=== PATIENT | female | born 1935 | race Caucasian/White ===

== ENCOUNTER 2016-09-25 11:18 | Inpatient (IN) | payer OTHER, MEDICARE ==
[~2016-09-25] VITALS: Ht 167.6 cm; Wt 53.8 kg
[2016-09-25] VITALS (11 sets, daily range): BP systolic 109–169; BP diastolic 52–74; PULSE 76–104; RESP 16–20; TEMP 96.8–98.5; O2SAT 93–98
[~2016-09-25 11:18] MED LIST: TAB-TAB PO
[2016-09-25] MEDS ORDERED: MULT-135 PO (11:49)
[2016-09-25] MEDS ORDERED: LEVA500T PO (11:49)
[2016-09-25] MEDS ORDERED: LATA0.002 EACH EYE (11:50)
--- NOTE | 2016-09-25 12:05 | PD ---
HPI Chief Complaint: Cold / Flu Symptoms Time Seen by Provider: 11:59 Travel History International Travel<30 days: No Contact w/Intl Traveler<30days: No Traveled to known affect area: No History of Present Illness HPI 81-year-old female with history of pneumonia, presents to the ER today because she has had 1 week history of cough, cold symptoms, yellow phlegm, shortness of breath, and fevers. She states that she had been seen by her primary care physician and was given Levaquin which she has taken for several days without significant improvement. She denies any vomiting, abdominal pains, or any other symptoms. She states that the coughing gets worse at night when she lays down. Modifying Factors: None Associated Signs & Symptoms: Coughing, shortness of breath, yellow phlegm, fevers Risk Factors: History of previous pneumonia, has been on antibiotics for several days PFSH Past Medical History Cancer: Yes (uterine cancer 15 yrs ago, skin cancer on face) Cardiovascular Problems: No Chemotherapy: No Diminished Hearing: Yes ([place]) Endocrine: No Genitourinary: No Immune Disorder: No Musculoskeletal: No Neurologic: No Psychiatric: No Reproductive: Yes (hx of pneumonia) Respiratory: No Radiation Therapy: No Tetanus Vaccination: < 5 Years Influenza Vaccination: No ?: Not Menopausal: Yes : 2 Para: 2 Miscarriage: 0 : 0 Past Surgical History Eye Surgery: Yes (for catarcts in both eyes, glaucoma) Gynecologic Surgery: Yes (hysterectomy) Hysterectomy: Yes Oral Surgery: Yes (tonsillectomy, teeth extractions) Tonsillectomy: Yes Social History Alcohol Use: No Tobacco Use: No (former smoker in her 20's cigs) Substance Use: No Allergies-Medications (Allergen,Severity, Reaction): Coded Allergies: No Known Allergies (Unverified , 09/25/16) Reported Meds & Prescriptions Reported Meds & Active Scripts Active Reported Latanoprost Opth Drops (Latanoprost) 0.005% Drops 1 Drop EACH EYE HS Refrigerate until opened. Levaquin (Levofloxacin) 500 Mg Tab 500 Mg PO DAILY Multi Vitamin (Multiple Vitamin) 1 Tab Tab 1 Tab PO DAILY Review of Systems Except as stated in HPI: all other systems reviewed are Neg Physical Exam Narrative GENERAL: Well-nourished, well-developed elderly white female patient who is coughing in the ER, in mild distress. Awake and oriented 3. SKIN: Warm and dry. HEAD: Normocephalic. EYES: No scleral icterus. No injection or drainage. NECK: Supple, trachea midline. CARDIOVASCULAR: Regular rate and rhythm without murmurs, gallops, or rubs. RESPIRATORY: Breath sounds equal and decreased at the bases bilaterally. No accessory muscle use. Right lower lung crackles. GASTROINTESTINAL: Abdomen soft, non-tender, nondistended. MUSCULOSKELETAL: No cyanosis. There is significant pitting edema at the left leg. BACK: Nontender without obvious deformity. No CVA tenderness. Data Data Last Documented VS Vital Signs Date Time Temp Pulse Resp B/P Pulse Ox O2 Delivery O2 Flow Rate FiO2 09/25/16 13:00 82 16 169/74 98 Nasal Cannula 2 09/25/16 12:06 98.5 Orders Influenzae A/B Antigen (09/25/16 11:42) Chest, Single Ap (09/25/16 11:42) Electrocardiogram (09/25/16 11:59) Complete Blood Count With Diff (09/25/16 11:59) Comprehensive Metabolic Panel (09/25/16 11:59) Lactic Acid Sepsis Protocol (09/25/16 11:59) Ckmb (Isoenzyme) Profile (09/25/16 11:59) Troponin I (09/25/16 11:59) Urinalysis - C+S If Indicated (09/25/16 11:59) Blood Culture (09/25/16 11:59) Blood Glucose (09/25/16 11:59) Ecg Monitoring (09/25/16 11:59) Iv Access Insert/Monitor (09/25/16 11:59) Oximetry (09/25/16 11:59) Oxygen Administration (09/25/16 11:59) B-Type Natriuretic Peptide (09/25/16 11:59) Ceftriaxone Inj (Rocephin Inj) (09/25/16 12:06) Azithromycin Inj (Zithromax Inj) (09/25/16 12:06) Urine Culture (09/25/16 12:40) Labs Laboratory Tests Test 09/25/16 09/25/16 12:10 12:40 White Blood Count 8.4 TH/MM3 Red Blood Count 4.03 MIL/MM3 Hemoglobin 11.6 GM/DL Hematocrit 36.0 % Mean Corpuscular Volume 89.3 FL Mean Corpuscular Hemoglobin 28.8 PG Mean Corpuscular Hemoglobin 32.3 % Concent Red Cell Distribution Width 13.1 % Platelet Count 229 TH/MM3 Mean Platelet Volume 8.0 FL Neutrophils (%) (Auto) 73.2 % Lymphocytes (%) (Auto) 8.2 % Monocytes (%) (Auto) 17.9 % Eosinophils (%) (Auto) 0.0 % Basophils (%) (Auto) 0.7 % Neutrophils # (Auto) 6.1 TH/MM3 Lymphocytes # (Auto) 0.7 TH/MM3 Monocytes # (Auto) 1.5 TH/MM3 Eosinophils # (Auto) 0.0 TH/MM3 Basophils # (Auto) 0.1 TH/MM3 CBC Comment DIFF FINAL Differential Comment Sodium Level 139 MEQ/L Potassium Level 3.9 MEQ/L Chloride Level 100 MEQ/L Carbon Dioxide Level 31.2 MEQ/L Anion Gap 8 MEQ/L Blood Urea Nitrogen 13 MG/DL Creatinine 0.54 MG/DL Estimat Glomerular Filtration 108 ML/MIN Rate Random Glucose 93 MG/DL Lactic Acid Level 1.2 mmol/L Calcium Level 8.1 MG/DL Total Bilirubin 0.5 MG/DL Aspartate Amino Transf 28 U/L (AST/SGOT) Alanine Aminotransferase 26 U/L (ALT/SGPT) Alkaline Phosphatase 72 U/L Total Creatine Kinase 64 U/L Troponin I LESS THAN 0.02 NG/ML B-Type Natriuretic Peptide 129 PG/ML Total Protein 6.5 GM/DL Albumin 2.7 GM/DL Urine Collection Type CATH Urine Color YELLOW Urine Turbidity CLEAR Urine pH 6.0 Urine Specific [place] 1.020 Urine Protein 30 mg/dL Urine Glucose (UA) NEG mg/dL Urine Ketones TRACE mg/dL Urine Occult Blood MOD Urine Nitrite NEG Urine Bilirubin NEG Urine Leukocyte Esterase TRACE Urine RBC 20-24 /hpf Urine WBC 15-19 /hpf Urine Squamous Epithelial 6-8 /hpf Cells Microscopic Urinalysis Comment CULTURE INDICATED Urine Collection Time 12:40 MDM Medical Decision Making Medical Screen Exam Complete: Yes Emergency Medical Condition: Yes Medical Record Reviewed: Yes Interpretation(s) EKG shows NSR, no ST elevation or depression, and no arrhythmias. No significant T-wave inversions. Last 24 hours Impressions Chest X-Ray 09/25/16 1142 Signed Impressions: Service Date/Time: Sunday, September 25, 2016 11:54 - CONCLUSION: Right basilar infiltrate and small effusion. Curt Ibarra MD Laboratory Tests Test 09/25/16 09/25/16 12:10 12:40 Neutrophils (%) (Auto) 73.2 % (16.0-70.0) Lymphocytes (%) (Auto) 8.2 % (9.0-44.0) Monocytes (%) (Auto) 17.9 % (0.0-8.0) Lymphocytes # (Auto) 0.7 TH/MM3 (1.0-4.8) Monocytes # (Auto) 1.5 TH/MM3 (0-0.9) Calcium Level 8.1 MG/DL (8.5-10.1) Troponin I LESS THAN 0.02 NG/ML (0.02-0.05) B-Type Natriuretic Peptide 129 PG/ML (0-100) Albumin 2.7 GM/DL (3.4-5.0) Urine Protein 30 mg/dL (NEG-TRACE) Urine Ketones TRACE mg/dL (NEG) Urine Occult Blood MOD (NEG) Urine Leukocyte Esterase TRACE (NEG) Urine RBC 20-24 /hpf (0-3) Urine WBC 15-19 /hpf (0-5) Urine Squamous Epithelial 6-8 /hpf (0-5) Cells Differential Diagnosis Coughing, shortness of breath, feverspneumonia versus bronchitis versus URI/ viral syndrome versus dehydration versus metabolic issues versus CHF Narrative Course Patient states that her left leg is always swollen since she had her hysterectomy many years ago, states that they had taken too many lymph nodes out. Apparently not a new issue. Chest x-ray shows a right lower lobe infiltrate concerning for pneumonia. She has a UTI. IV antibiotics were initiated after cultures are drawn. At this point, my plan would be to admit her for pneumonia and UTI, failed outpatient therapy. Case is discussed with Dr. Brown for admission. Diagnosis Primary Impression: Pneumonia Additional Impression: UTI (urinary tract infection) Admitting Information Admitting Physician Requests: Admit Alessandra Lujan MD Sep 25, 2016 12:05 Alessandra Lujan MD Sep 25, 2016 12:05
[2016-09-25] MEDS ORDERED: cefTRIAXone INJ 2,000 MG in SODIUM CHLORIDE 0.9% INJ 100 ML IV STA (12:06)
[2016-09-25] MEDS ORDERED: AZITHROMYCIN INJ 500 MG in SODIUM CHLOR 0.9% 250 ML INJ 250 ML IV STA (12:06)
--- NOTE | 2016-09-25 12:08 | RADHPO ---
EXAM DATE/TIME: 09/25/2016 11:54 [facility] COMPARISON: CHEST SINGLE AP, November 26, 2013, 16:36. INDICATIONS : Cough, fever, short of breath MEDICAL HISTORY : None. SURGICAL HISTORY : None. ENCOUNTER: Initial ACUITY: 2 weeks PAIN SCORE: 0/10 LOCATION: Bilateral chest FINDINGS: A single view of the chest demonstrates hyperaeration and right basal density. Left lung clear. Heart and the upper limits of normal in size. Osseous structures are intact. CONCLUSION: Right basilar infiltrate and small effusion. Curt Ibarra MD on September 25, 2016 at 12:05 Board Certified Radiologist. This report was verified electronically.
[2016-09-25 12:29] LABS: AUTOMATED NEUTROPHIL # 6.1 TH/MM3 (1.8-7.7); BASOPHIL # 0.1 TH/MM3 (0-0.2); BASOPHIL % 0.7 % (0.0-2.0); LYMPH % 8.2 % (9.0-44.0); LYMPHOCYTE # 0.7 TH/MM3 (1.0-4.8); MEAN CELL VOLUME 89.3 FL (80.0-100.0); MEAN CORPUSCULAR HEMOGLOBIN 28.8 PG (27.0-34.0); MEAN CORPUSCULAR HGB CONC 32.3 % (32.0-36.0); MONO % 17.9 % (0.0-8.0); NEUT % 73.2 % (16.0-70.0); PLATELET COUNT 229 TH/MM3 (150-450); RED BLOOD COUNT 4.03 MIL/MM3 (4.00-5.30); RED CELL DISTRIBUTION WIDTH 13.1 % (11.6-17.2); WHITE BLOOD COUNT 8.4 TH/MM3 (4.0-11.0)
[2016-09-25 12:34] LABS: HEMO FLAGS DIFF FINAL
[2016-09-25 12:37] LABS: CHLORIDE 100 MEQ/L (98-107); POTASSIUM 3.9 MEQ/L (3.5-5.1); SODIUM (NA) 139 MEQ/L (136-145)
[2016-09-25 12:41] LABS: ANION GAP 8 MEQ/L (5-15); BICARBONATE 31.2 MEQ/L (21.0-32.0); BLOOD UREA NITROGEN 13 MG/DL (7-18)
[2016-09-25 12:43] LABS: ALT (GPT) 26 U/L (10-53)
[2016-09-25 12:44] LABS: AST (GOT) 28 U/L (15-37); GLOMERULAR FILTRATION RATE 108 ML/MIN (>89)
[2016-09-25 12:45] LABS: TOTAL BILIRUBIN ADULT 0.5 MG/DL (0.2-1.0)
[2016-09-25 12:46] LABS: ALKALINE PHOSPHATASE 72 U/L (45-117)
[2016-09-25 12:53] LABS: CREATINE KINASE 64 U/L (26-192)
[2016-09-25 13:00] LABS: GLUCOSE,URINE NEG (NEG); KETONE, URINE TRACE mg/dL (NEG); NITRITE,URINE NEG (NEG)
[2016-09-25 13:01] LABS: BLOOD, URINE MOD (NEG)
[2016-09-25 13:06] LABS: METHOD OF COLLECTION CATH; URINE COLOR YELLOW (YELLW/STRAW); WBC, URINE 15-19 /hpf (0-5)
[2016-09-25 13:07] LABS: COMMENT (UR) CULTURE INDICATED; CULTURE IF INDICATED CULTURE INDICATED
--- NOTE | 2016-09-25 14:11 | HHI.HP ---
cc: Letitia Jones MD [facility] Letitia Jones MD Admission Diagnosis pneumonia/UTI Diagnoses: (1) Pneumonia Diagnosis: Principal (2) Pleural effusion Diagnosis: Principal (3) Failure of outpatient treatment Diagnosis: Principal (4) Possible urinary tract infection Diagnosis: Principal (5) Leg edema, left Diagnosis: Principal (6) HTN (hypertension) Diagnosis: Principal (7) Coccygeal pain Diagnosis: Principal Chief Complaint: cough, sob Travel History International Travel<30 Days: No Contact w/Intl Traveler <30 Da: No Traveled to Known Affected Are: No History of Present Illness 81-year-old female with history of uterine and skin cancer as well as a previous pneumonia is admitted for pneumonia. Patient states that a few weeks ago she was cold all the time. She states her cough came on gradually but it became worse 1 week ago. Cough is productive with yellow sputum. She states she couldn't lay down because she couldn't breathe. She states she cannot take a breath because it makes her cough. She admits to pleuritic pain once in a while but denies chest pain otherwise. She has had terrible headaches , no energy, and generalized weakness. She states the "gland" behind her left ear feels swollen and she has soreness in the left naris. The patient states she saw her primary care physician Dr. Jones on 09/21/16 and had a fever of 101.5 in the office. She was prescribed Levaquin 500 mg daily 10 days which she has been taking but states it has not helped. Patient states she was constipated a few days ago but drank prune juice which helped and her last bowel movement was this morning. She denies any abdominal pain, nausea, vomiting, or diarrhea. She admits to increased frequency of urination although little output each time , but denies any dysuria. She admits to low back pain which she attributes to sitting in the recliner the past few nights whereas she usually lies supine when sleeping. Denies recent fall. Patient lives alone at home independently but there is a gentleman who is in the detached apartment who helps take care of her dog; she states he was sick 1 month ago. Patient denies being hospitalized the last 3 months. Review of Systems Constitutional: COMPLAINS OF: Fatigue, Fever, Chills Eyes: DENIES: Blurred vision Respiratory: COMPLAINS OF: Cough, Sputum production, Shortness of breath Cardiovascular: COMPLAINS OF: Chest pain (pleuritic pain) Gastrointestinal: COMPLAINS OF: Constipation (now resolved), DENIES: Abdominal pain, Black stools, Bloody stools, Diarrhea, Nausea, Vomiting Genitourinary: COMPLAINS OF: Urinary frequency, DENIES: Dysuria Musculoskeletal: COMPLAINS OF: Back pain Integumentary: DENIES: Rash Hematologic/lymphatic: COMPLAINS OF: Lymphadenopathy (behind L ear) Neurologic: COMPLAINS OF: Headache +generalized weakness Past Family Social History Past Medical History Uterine cancer 15 years ago Skin cancer face Hospitalized for pneumonia in 2013 Past Surgical History Glaucoma and cataract surgery Hysterectomy Tonsillectomy, teeth extraction Reported Medications Latanoprost Opth Drops (Latanoprost) 0.005% Drops 1 Drop EACH EYE HS Refrigerate until opened. Multi Vitamin (Multiple Vitamin) 1 Tab Tab 1 Tab PO DAILY Allergies: Coded Allergies: No Known Allergies (Unverified , 09/25/16) Family History Mother at age 75 from heart issue. Father at age 92 from heart issue. Grandmother with stomach cancer. Social History Patient states she quit smoking at age of 21. Denies illicit drug use. Physical Exam Vital Signs Vital Signs Date Time Temp Pulse Resp B/P Pulse Ox O2 Delivery O2 Flow Rate FiO2 09/25/16 13:00 82 16 169/74 98 Nasal Cannula 2 09/25/16 12:35 80 16 150/60 98 Nasal Cannula 2 09/25/16 12:07 98 Nasal Cannula 2 09/25/16 12:07 18 98 Nasal Cannula 2 09/25/16 12:06 98.5 78 18 135/70 96 Room Air 09/25/16 11:40 87 16 94 Room Air 09/25/16 11:23 98.5 84 16 139/56 94 Physical Exam GENERAL: This is a pleasant elderly well-developed patient in no apparent distress. SKIN: Light erythema over the left distal tibia. HEAD: Atraumatic. Normocephalic. EYES: No scleral icterus. No injection or drainage. NECK: Trachea midline. CARDIOVASCULAR: Regular rate and rhythm without murmurs, gallops, or rubs. RESPIRATORY: Productive cough on exam. Patient coughs with each expiration. Rhonchi vs crackles present. No wheezing. GASTROINTESTINAL: Abdomen soft, non-tender, nondistended. No guarding. MUSCULOSKELETAL: Tender warm edema of the left lower leg. BACK: No CVA tenderness bilaterally. Tender over coccygeal region, but no swelling or ecchymosis evident. NEUROLOGICAL: Awake and alert. Normal speech. PSYCHIATRIC: Normal mood and affect. Laboratory Laboratory Tests Test 09/25/16 09/25/16 12:10 12:40 White Blood Count 8.4 Red Blood Count 4.03 Hemoglobin 11.6 Hematocrit 36.0 Mean Corpuscular Volume 89.3 Mean Corpuscular Hemoglobin 28.8 Mean Corpuscular Hemoglobin 32.3 Concent Red Cell Distribution Width 13.1 Platelet Count 229 Mean Platelet Volume 8.0 Neutrophils (%) (Auto) 73.2 Lymphocytes (%) (Auto) 8.2 Monocytes (%) (Auto) 17.9 Eosinophils (%) (Auto) 0.0 Basophils (%) (Auto) 0.7 Neutrophils # (Auto) 6.1 Lymphocytes # (Auto) 0.7 Monocytes # (Auto) 1.5 Eosinophils # (Auto) 0.0 Basophils # (Auto) 0.1 CBC Comment DIFF FINAL Differential Comment Sodium Level 139 Potassium Level 3.9 Chloride Level 100 Carbon Dioxide Level 31.2 Anion Gap 8 Blood Urea Nitrogen 13 Creatinine 0.54 Estimat Glomerular Filtration 108 Rate Random Glucose 93 Lactic Acid Level 1.2 Calcium Level 8.1 Total Bilirubin 0.5 Aspartate Amino Transf 28 (AST/SGOT) Alanine Aminotransferase 26 (ALT/SGPT) Alkaline Phosphatase 72 Total Creatine Kinase 64 Troponin I LESS THAN 0.02 B-Type Natriuretic Peptide 129 Total Protein 6.5 Albumin 2.7 Urine Collection Type CATH Urine Color YELLOW Urine Turbidity CLEAR Urine pH 6.0 Urine Specific [place] 1.020 Urine Protein 30 Urine Glucose (UA) NEG Urine Ketones TRACE Urine Occult Blood MOD Urine Nitrite NEG Urine Bilirubin NEG Urine Leukocyte Esterase TRACE Urine RBC 20-24 Urine WBC 15-19 Urine Squamous Epithelial 6-8 Cells Microscopic Urinalysis Comment CULTURE INDICATED Urine Collection Time 12:40 Date/Time Procedure Status Source Growth 09/25/16 12:40 Urine Culture Received Urine Catheterized Urine Pending 09/25/16 12:30 Aerobic Blood Culture Received Blood Peripheral Pending 09/25/16 12:30 Anaerobic Blood Culture Received Blood Peripheral Pending 09/25/16 11:50 Influenza Types A,B Antigen (MARTIN) - Final Complete Nasal Washing NEGATIVE FOR FLU A AND B ANTIGEN.... Result Diagram: 09/25/16 1210 09/25/16 1210 Imaging Last Impressions Chest X-Ray 09/25/16 1142 Signed Impressions: Service Date/Time: Sunday, September 25, 2016 11:54 - CONCLUSION: Right basilar infiltrate and small effusion. Curt Ibarra MD Assessment and Plan Assessment and Plan 81-year-old female with: Pneumonia/pleural effusion/failure of outpatient treatment: Patient presents with cough, SOB, and occasional pleuritic pain. Chest x-ray personally interpreted with an obvious infiltrate in the right lower lobe and small right pleural effusion. Failed outpatient Levaquin. White blood cell count is normal. Patient does not meet sepsis criteria. Negative influenza test. Oxygen saturation 94% on room air; 98% on 2 L of O2. -Continue azithromycin and ceftriaxone IV. -Solu-Medrol 40 mg every 12 hours -DuoNeb every 4 as needed for shortness of breath -Guaifenesin-dextromethorphan cough syrup prn -Tylenol prn fever -O2 prn -Blood cultures pending -PT eval for generalized weakness Possible UTI: UA personally interpreted. Although there is moderate occult blood and 15-19 white blood cells there is only trace leukocyte esterase, no nitrites, and 6-8 squamous epithelial cells which may indicate contamination. Patient does admit to some increased urinary frequency though. -Possible UTI will be covered with ceftriaxone being administered for pneumonia -Urine culture pending L leg edema: Significant swelling in the left lower leg present on exam. Patient states she has chronic edema in the left leg due to lymph node removal with her hysterectomy, but the leg is significantly sensitive to touch, which may be new, and it is warm and slightly erythematous. Right lower extremity is normal. -Doppler ultrasound left leg ordered to rule out DVT HTN: BP 169/74 at 1300 hrs. Likely attributed to acute illness. No history of hypertension. -Clonidine prn SBP >180 Coccygeal pain: No injury. Due to sitting in chair. -Tylenol, Eldena prn pain -PT GI prophylaxis: -Pepcid 20 mg po daily. -Colace 100 mg po bid -Magnesium hydroxide prn constipation DVT prevention: Lovenox sq. Avoid SCD use on L leg. Written by Cora Sosa PA-C acting as scribe for Dr. Brown on 09/25/16 at ~ 1400 hours. The documentation accurately reflects the work and decisions performed face-to- face by me Dr. Brown on 09/25/16 at ~1400. Discussed Condition With ED physician, patient Physician Certification 2 Midnight Certification Type: Admission for Inpatient Services Order for Inpatient Services The services are ordered in accordance with Medicare regulations or non- Medicare payer requirements, as applicable. In the case of services not specified as inpatient-only, they are appropriately provided as inpatient services in accordance with the 2-midnight benchmark. Estimated LOS (days): 2 days is the estimated time the patient will need to remain in the hospital, assuming treatment plan goals are met and no additional complications. Post-Hospital Plan: Not yet determined Medical Decision Making Impression and Plan The exam, history, and the medical decision-making described in the above note were completed with the assistance of the mid-level provider. I reviewed and agree with the findings presented. I attest that I had a [id number] encounter with the patient on the same day, and personally performed and documented my assessment and findings in the medical record. Agree with above Problem Qualifiers (1) Pneumonia: Cora Sosa Sep 25, 2016 14:11 Belle Brown MD Sep 25, 2016 16:06
[2016-09-25] MEDS: methylPREDNISolone SOD SUCC 40 MG/1 ML VIAL IV SCH (14:41)
[2016-09-25] MEDS: SODIUM CHLORIDE 0.9% FLUSH 5 ML FLUSH IV FLUSH PRN (14:41)
[2016-09-25] MEDS ORDERED: ONDANSETRON HCL 4 MG/2 ML VIAL IVP PRN (15:15)
[2016-09-25] MEDS ORDERED: MAGNESIUM HYDROXIDE SUSP 30 ML CUP PO PRN (15:15)
[2016-09-25] MEDS ORDERED: ACETAMINOPHEN/HYDROcodone 325 MG/5 MG TAB PO PRN (15:15)
[2016-09-25] MEDS: DOCUSATE SODIUM 100 MG CAP PO SCH (15:15)
[2016-09-25] MEDS ORDERED: ACETAMINOPHEN/HYDROcodone 325 MG/7.5 MG TAB PO PRN (15:15)
--- NOTE | 2016-09-25 15:48 | RADHPO ---
EXAM DATE/TIME: 09/25/2016 15:08 [facility] COMPARISON: No previous studies available for comparison. EXTERNAL COMPARISON : [facility], US LEG, B[facility], [facility], US LEG, BILATE RAL VENOUS DOPPLER, July. [facility], US LEG, LEFT VENOUS DOPPLER, July 17 09. INDICATIONS : Left leg swelling. MEDICAL HISTORY : Carcinoma, uterine and skin. SURGICAL HISTORY : Tonsillectomy. Hysterectomy. Cataract removal. Foot surgery. ENCOUNTER: Subsequent ACUITY: 1 day PAIN SCORE: 0/10 LOCATION: Left leg. TECHNIQUE: Venous ultrasound of the leg was performed from the inguinal ligament to the proximal calf. Real-shruthi e, color Doppler and spectral tracing, compression and augmentation techniques were used. FINDINGS: There is normal compressibility of the deep venous system from the inguinal region to the proximal ca lf. No echogenic clot is seen in the lumen of the common femoral, femoral, popliteal, and posterior tibial veins. There is a normal response of the venous system to proximal and distal augmentation an d respiration. CONCLUSION: Normal examination. Bernardo Magdaleno MD on September 25, 2016 at 15:46 Board Certified Radiologist. This report was verified electronically.
[2016-09-25] MEDS: ENOXAPARIN SODIUM 40 MG/0.4 ML SYRINGE SQ SCH (17:30)
[2016-09-25] MEDS ORDERED: FAMOTIDINE 20 MG TAB PO SCH (21:00)
[2016-09-25] MEDS: LATANOPROST 0.005% OPHT SOLN 2.5 ML BTL EACH EYE SCH (21:46)
[2016-09-25] MEDS: SODIUM CHLORIDE 0.9% FLUSH 5 ML FLUSH IV FLUSH SCH (21:47)
[2016-09-25] MEDS: guaiFENesin/DEXTROMETHORPHAN 200 MG/20 MG/10 ML CUP PO PRN (21:48)
[2016-09-26] VITALS (7 sets, daily range): BP systolic 108–164; BP diastolic 58–77; PULSE 71–82; RESP 18–20; TEMP 96.1–97.8; O2SAT 91–96
[2016-09-26] MEDS: methylPREDNISolone SOD SUCC 40 MG/1 ML VIAL IV SCH ×2 (02:45→14:52)
[2016-09-26] MEDS: DOCUSATE SODIUM 100 MG CAP PO SCH (03:15)
[2016-09-26 07:19] LABS: AUTOMATED NEUTROPHIL # 8.2 TH/MM3 (1.8-7.7); BASOPHIL % 0.1 % (0.0-2.0); EOSINOPHIL # 0.1 TH/MM3 (0-0.4); EOSINOPHIL % 0.7 % (0.0-4.0); HEMATOCRIT 37.9 % (35.0-46.0); LYMPH % 6.5 % (9.0-44.0); LYMPHOCYTE # 0.6 TH/MM3 (1.0-4.8); MEAN CELL VOLUME 92.2 FL (80.0-100.0); MEAN CORPUSCULAR HEMOGLOBIN 30.3 PG (27.0-34.0); MEAN CORPUSCULAR HGB CONC 32.9 % (32.0-36.0); MONO % 8.4 % (0.0-8.0); NEUT % 84.3 % (16.0-70.0); PLATELET COUNT 213 TH/MM3 (150-450); RED BLOOD COUNT 4.11 MIL/MM3 (4.00-5.30); RED CELL DISTRIBUTION WIDTH 13.6 % (11.6-17.2); WHITE BLOOD COUNT 9.7 TH/MM3 (4.0-11.0)
[2016-09-26 07:25] LABS: HEMO FLAGS DIFF FINAL
[2016-09-26 07:28] LABS: POTASSIUM 3.9 MEQ/L (3.5-5.1)
--- NOTE | 2016-09-26 07:29 | HHI.PR ---
Subjective Remarks Patient seen in follow-up for pneumonia and hypoxemia. Still coughing quite a bit this morning. No events overnight. Still hypoxemic. No new complaints. She does say she feels a bit better having had a good night's rest Objective Vitals Vital Signs Date Time Temp Pulse Resp B/P Pulse Ox O2 Delivery O2 Flow Rate FiO2 09/26/16 04:00 96.9 82 18 164/77 95 09/26/16 00:00 97.8 71 18 142/65 94 09/25/16 20:40 95 Nasal Cannula 2.00 09/25/16 20:00 97.7 76 16 109/61 95 09/25/16 17:00 98.4 104 20 120/72 93 09/25/16 15:00 96.8 84 20 145/67 95 09/25/16 14:54 81 18 142/52 98 Nasal Cannula 2 09/25/16 14:00 79 18 148/54 98 Nasal Cannula 2 09/25/16 13:30 80 18 97 Nasal Cannula 2 09/25/16 13:00 82 16 169/74 98 Nasal Cannula 2 09/25/16 12:35 80 16 150/60 98 Nasal Cannula 2 09/25/16 12:07 98 Nasal Cannula 2 09/25/16 12:07 18 98 Nasal Cannula 2 09/25/16 12:06 98.5 78 18 135/70 96 Room Air 09/25/16 11:40 87 16 94 Room Air 09/25/16 11:23 98.5 84 16 139/56 94 I/O 09/25/16 09/25/16 09/25/16 09/26/16 09/26/16 09/26/16 07:00 15:00 23:00 07:00 15:00 23:00 Intake Total 350 ml 485 ml 650 ml Balance 350 ml 485 ml 650 ml Intake Oral 480 ml 650 ml IV Total 350 ml 5 ml # Voids 2 2 # Bowel Movements 0 0 Result Diagram: 09/25/16 1210 09/25/16 1210 Imaging Last Impressions Lower Extremity Ultrasound 09/25/16 1412 Signed Impressions: Service Date/Time: Sunday, September 25, 2016 15:08 - CONCLUSION: Normal examination. Bernardo Magdaleno MD Chest X-Ray 09/25/16 1142 Signed Impressions: Service Date/Time: Sunday, September 25, 2016 11:54 - CONCLUSION: Right basilar infiltrate and small effusion. Curt Ibarra MD Objective Remarks GENERAL: This is a thin but well-developed female, in no apparent distress. Coughing high CARDIOVASCULAR: Regular rate and rhythm without murmurs, gallops, or rubs. RESPIRATORY: Bilateral coarse breath sounds and wheezes GASTROINTESTINAL: Abdomen soft, non-tender, nondistended. Normal active bowel sounds MUSCULOSKELETAL: Extremities without clubbing, cyanosis, or edema. NEURO: Alert & Oriented x4 to person, place, time, situation. Moves all ext x4 A/P Problem List: (1) Pneumonia ICD Code: J18.9 Status: Acute Plan: Patient failed outpatient Levaquin Continue with Rocephin and azithromycin IV Continue with oxygen for hypoxemia, iv steroids, duonebs prn (2) Abnormal urinalysis ICD Code: R82.90 Status: Acute Plan: cont Rocephin empirically and follow cultures Assessment and Plan LMWH DVT prophylaxis Problem Qualifiers (1) Pneumonia: Belle Brown MD Sep 26, 2016 07:29
[2016-09-26] MEDS: MULTIVITAMIN TAB PO SCH (08:08)
[2016-09-26] MEDS: guaiFENesin/DEXTROMETHORPHAN 200 MG/20 MG/10 ML CUP PO PRN ×2 (08:08→22:24)
[2016-09-26] MEDS: RESP: ALBUTEROL 2.5 MG/IPRATROPIUM 0.5 MG NEB (PRN) INH ×2 (09:59→16:55)
[2016-09-26] MEDS ORDERED: cefTRIAXone INJ 1,000 MG in SODIUM CHLORIDE 0.9% INJ 100 ML IV SCH (13:00)
--- NOTE | 2016-09-26 13:04 | EKG ---
Date Performed: 09/25/2016 Time Performed: 12:21:58 PTAGE: 81 years EKG: Sinus rhythm Possible anteroseptal infarct - age undetermined Compared to previous tracing, R wave progression is slightly more, likely due to lead placement differences Abnormal ECG PREVIOUS TRACING : 10/08/2013 14.29 DOCTOR: Daniel Skaggs Interpretating Date/Time 09/26/2016 13:00:05
[2016-09-26] MEDS ORDERED: AZITHROMYCIN INJ 500 MG in SODIUM CHLOR 0.9% 250 ML INJ 250 ML IV SCH (14:00)
[2016-09-26] MEDS: SODIUM CHLORIDE 0.9% FLUSH 5 ML FLUSH IV FLUSH SCH ×2 (14:53→22:24)
[2016-09-26] MEDS ORDERED: DOCUSATE SODIUM 100 MG CAP PO PRN (15:15)
[2016-09-26] MEDS: ENOXAPARIN SODIUM 40 MG/0.4 ML SYRINGE SQ SCH (17:30)
[2016-09-26] MEDS: LATANOPROST 0.005% OPHT SOLN 2.5 ML BTL EACH EYE SCH (22:25)
[2016-09-27] VITALS (7 sets, daily range): BP systolic 108–162; BP diastolic 50–77; PULSE 68–76; RESP 16–20; TEMP 96.1–98.9; O2SAT 93–96
[2016-09-27] MEDS: SODIUM CHLORIDE 0.9% FLUSH 5 ML FLUSH IV FLUSH PRN (01:50)
[2016-09-27] MEDS: methylPREDNISolone SOD SUCC 40 MG/1 ML VIAL IV SCH (01:50)
[2016-09-27] MEDS: guaiFENesin/DEXTROMETHORPHAN 200 MG/20 MG/10 ML CUP PO PRN (08:53)
[2016-09-27] MEDS: ACETAMINOPHEN 325 MG TAB PO PRN (08:54)
[2016-09-27] MEDS: MULTIVITAMIN TAB PO SCH (08:54)
--- NOTE | 2016-09-27 12:05 | HHI.PR ---
Subjective Remarks Today the patient states she is feeling much better. No shortness of breath. Cough improved but she is still coughing up some yellowish phlegm. The patient states she feels that she improved with physical therapy today and that she ambulated in her room. Objective Vitals Vital Signs Date Time Temp Pulse Resp B/P Pulse Ox O2 Delivery O2 Flow Rate FiO2 09/27/16 09:55 98.4 75 16 162/77 96 09/27/16 00:00 96.1 76 18 156/60 96 09/26/16 20:30 Nasal Cannula 2.00 09/26/16 20:00 96.1 82 18 159/73 96 09/26/16 16:00 96.4 78 20 143/65 96 I/O 09/26/16 09/26/16 09/26/16 09/27/16 09/27/16 09/27/16 07:00 15:00 23:00 07:00 15:00 23:00 Intake Total 650 ml 0 ml 0 ml Balance 650 ml 0 ml 0 ml Intake Oral 650 ml IV Total 0 ml 0 ml # Voids 2 # Bowel Movements 0 Result Diagram: 09/26/1647 09/26/16 0647 Objective Remarks GENERAL: Well-nourished, well-developed very pleasant lean elderly female patient. SKIN: Warm and dry. HEAD: Normocephalic. EYES: No scleral icterus. No injection or drainage. NECK: Supple, trachea midline. No JVD or lymphadenopathy. CARDIOVASCULAR: Regular rate and rhythm without murmurs, gallops, or rubs. RESPIRATORY: Breath sounds equal and clear to auscultation bilaterally. No accessory muscle use on 2 L nasal cannula. GASTROINTESTINAL: Abdomen soft, non-tender, nondistended. EXTREMITIES: Trace pedal edema. NEUROLOGICAL: Awake, alert, and oriented x 3. Non-focal. A/P Problem List: (1) Pneumonia ICD Code: J18.9 Status: Acute (2) Abnormal urinalysis ICD Code: R82.90 Status: Acute Assessment and Plan -Right lower lobe pneumonia, community-acquired. Failed 10 days of by mouth Levaquin as outpatient. Clinically much improved on Rocephin and Zithromax. Will continue Zithromax, DC Rocephin and place her on Ceftin. Will check a walk test to determine if she will require oxygen. -Generalized weakness. Continue PT. May need home health care versus [facility] facility depending on PT reevaluation today. -Abnormal UA. However cultures negative at 48 hours. -DVT prophylaxis with Lovenox 40 mg subcutaneous daily. Discharge Planning Probable discharge tomorrow Problem Qualifiers (1) Pneumonia: Grace Fonseca MD Sep 27, 2016 12:04
[2016-09-27] MEDS: ENOXAPARIN SODIUM 40 MG/0.4 ML SYRINGE SQ SCH (15:10)
[2016-09-27] MEDS: AZITHROMYCIN 250 MG TAB PO SCH (15:10)
[2016-09-27] MEDS: SODIUM CHLORIDE 0.9% FLUSH 5 ML FLUSH IV FLUSH SCH ×2 (15:10→20:23)
[2016-09-27] MEDS: RESP: ALBUTEROL 2.5 MG/IPRATROPIUM 0.5 MG NEB (PRN) INH ×2 (17:25→21:21)
[2016-09-27] MEDS: CEFUROXIME AXETIL 250 MG TAB PO SCH (20:23)
[2016-09-27] MEDS: LATANOPROST 0.005% OPHT SOLN 2.5 ML BTL EACH EYE SCH (20:23)
[2016-09-28] VITALS (8 sets, daily range): BP systolic 152–185; BP diastolic 71–81; PULSE 69–82; RESP 18–20; TEMP 96.6–99.9; O2SAT 92–96
[2016-09-28] MEDS: CEFUROXIME AXETIL 250 MG TAB PO SCH ×2 (09:19→20:48)
[2016-09-28] MEDS: SODIUM CHLORIDE 0.9% FLUSH 5 ML FLUSH IV FLUSH SCH ×2 (09:19→20:48)
[2016-09-28] MEDS: MULTIVITAMIN TAB PO SCH (09:19)
[2016-09-28] MEDS: AZITHROMYCIN 250 MG TAB PO SCH (09:19)
[2016-09-28] MEDS ORDERED: CEFT250T8 PO (11:49)
[2016-09-28] MEDS ORDERED: ROBIDM5S PO (11:49)
[2016-09-28] MEDS ORDERED: ZITH250T PO (11:49)
--- NOTE | 2016-09-28 11:51 | HHI.DS ---
Discharge Summary Admission Date Sep 25, 2016 at 13:32 Discharge Date: Sep 28, 2016 Admitting Diagnosis pneumonia/UTI (1) Pneumonia ICD Code: J18.9 (2) Abnormal urinalysis ICD Code: R82.90 (3) Unsteady gait ICD Code: R26.81 Procedures None Brief History - From Admission 81-year-old female with history of uterine and skin cancer as well as a previous pneumonia is admitted for pneumonia. Patient states that a few weeks ago she was cold all the time. She states her cough came on gradually but it became worse 1 week ago. Cough is productive with yellow sputum. She states she couldn't lay down because she couldn't breathe. She states she cannot take a breath because it makes her cough. She admits to pleuritic pain once in a while but denies chest pain otherwise. She has had terrible headaches , no energy, and generalized weakness. She states the "gland" behind her left ear feels swollen and she has soreness in the left naris. The patient states she saw her primary care physician Dr. Jones on 09/21/16 and had a fever of 101.5 in the office. She was prescribed Levaquin 500 mg daily 10 days which she has been taking but states it has not helped. Patient states she was constipated a few days ago but drank prune juice which helped and her last bowel movement was this morning. She denies any abdominal pain, nausea, vomiting, or diarrhea. She admits to increased frequency of urination although little output each time , but denies any dysuria. She admits to low back pain which she attributes to sitting in the recliner the past few nights whereas she usually lies supine when sleeping. Denies recent fall. Patient lives alone at home independently but there is a gentleman who is in the detached apartment who helps take care of her dog; she states he was sick 1 month ago. Patient denies being hospitalized the last 3 months. CBC/BMP: 09/26/16 0647 09/26/16 0647 Significant Findings Laboratory Tests Test 09/25/16 09/25/16 09/26/16 12:10 12:40 06:47 Neutrophils (%) (Auto) 73.2 % 84.3 % (16.0-70.0) (16.0-70.0) Lymphocytes (%) (Auto) 8.2 % 6.5 % (9.0-44.0) (9.0-44.0) Monocytes (%) (Auto) 17.9 % 8.4 % (0.0-8.0) (0.0-8.0) Lymphocytes # (Auto) 0.7 TH/MM3 0.6 TH/MM3 (1.0-4.8) (1.0-4.8) Monocytes # (Auto) 1.5 TH/MM3 (0-0.9) Calcium Level 8.1 MG/DL 8.3 MG/DL (8.5-10.1) (8.5-10.1) Troponin I LESS THAN 0.02 NG/ML (0.02-0.05) B-Type Natriuretic Peptide 129 PG/ML (0-100) Albumin 2.7 GM/DL (3.4-5.0) Urine Protein 30 mg/dL (NEG-TRACE) Urine Ketones TRACE mg/dL (NEG) Urine Occult Blood MOD (NEG) Urine Leukocyte Esterase TRACE (NEG) Urine RBC 20-24 /hpf (0-3) Urine WBC 15-19 /hpf (0-5) Urine Squamous Epithelial 6-8 /hpf (0-5) Cells Neutrophils # (Auto) 8.2 TH/MM3 (1.8-7.7) Creatinine 0.48 MG/DL (0.50-1.00) Random Glucose 147 MG/DL (74-106) Imaging Last Impressions Lower Extremity Ultrasound 09/25/16 1412 Signed Impressions: Service Date/Time: Sunday, September 25, 2016 15:08 - CONCLUSION: Normal examination. Bernardo Magdaleno MD Chest X-Ray 09/25/16 1142 Signed Impressions: Service Date/Time: Sunday, September 25, 2016 11:54 - CONCLUSION: Right basilar infiltrate and small effusion. Curt Ibarra MD PE at Discharge GENERAL: Well-nourished, well-developed very pleasant lean elderly female patient. SKIN: Warm and dry. HEAD: Normocephalic. EYES: No scleral icterus. No injection or drainage. NECK: Supple, trachea midline. No JVD or lymphadenopathy. CARDIOVASCULAR: Regular rate and rhythm without murmurs, gallops, or rubs. RESPIRATORY: Breath sounds equal and clear to auscultation bilaterally. No accessory muscle use on 2 L nasal cannula. GASTROINTESTINAL: Abdomen soft, non-tender, nondistended. EXTREMITIES: Trace pedal edema. NEUROLOGICAL: Awake, alert, and oriented x 3. Non-focal. Hospital Course The patient was admitted to the hospital and treated with IV antibiotics. She improved. However she was still unsteady on her feet with physical therapy. It was determined she would require [facility] facility for physical therapy. The patient has been transition to by mouth antibiotics and will complete a seven-day course with Ceftin as well as several more days of Zithromax. Pt Condition on Discharge: Stable Discharge Disposition: Discharge to SNF Discharge Time: <= 30 minutes Discharge Instructions DIET: Follow Instructions for: Heart Healthy Diet Activities you can perform: Regular-No Restrictions New Medications: Azithromycin (Zithromax) 250 Mg Tab 250 MG PO DAILY Infection #3 TAB Cefuroxime (Ceftin) 250 Mg Tab 250 MG PO Q12HR Infection #14 TAB Guaifenesin/Dextromethorphan Liq (Guaifenesin-Dm Liq) 100-10 Mg/5 Ml Syrp 10 ML PO Q4H PRN COUGH #1 BOTTLE Continued Medications: Latanoprost Opth Drops (Latanoprost Opth Drops) 0.005% Drops 1 DROP EACH EYE HS Refrigerate until opened. Glaucoma #2.5 Ref 0 ML Multiple Vitamin (Multi Vitamin) 1 Tab Tab 1 TAB PO DAILY Grace Ferrer MD Sep 28, 2016 11:50
[2016-09-28] MEDS: ENOXAPARIN SODIUM 40 MG/0.4 ML SYRINGE SQ SCH (16:52)
[2016-09-28] MEDS: ACETAMINOPHEN 325 MG TAB PO PRN (17:00)
[2016-09-28] MEDS: RESP: ALBUTEROL 2.5 MG/IPRATROPIUM 0.5 MG NEB (PRN) INH (20:27)
[2016-09-28] MEDS: LATANOPROST 0.005% OPHT SOLN 2.5 ML BTL EACH EYE SCH (20:48)
[2016-09-29] VITALS: BP 183/83; PULSE 74; RESP 20; TEMP 96.4; O2SAT 96
[2016-09-29 00:15] VITALS: BP 160/64
[2016-09-29] MEDS: ACETAMINOPHEN 325 MG TAB PO PRN (01:23)
[2016-09-29] MEDS: guaiFENesin/DEXTROMETHORPHAN 200 MG/20 MG/10 ML CUP PO PRN (01:23)
[2016-09-29 04:00] VITALS: BP 176/72; PULSE 64; RESP 20; TEMP 96.2; O2SAT 97
[2016-09-29 07:16] VITALS: O2SAT 94
[2016-09-29] MEDS: RESP: ALBUTEROL 2.5 MG/IPRATROPIUM 0.5 MG NEB (PRN) INH (07:16)
[2016-09-29 08:00] VITALS: BP 153/70; PULSE 77; RESP 17; TEMP 98; O2SAT 98
[2016-09-29] MEDS: CEFUROXIME AXETIL 250 MG TAB PO SCH (08:26)
[2016-09-29] MEDS: SODIUM CHLORIDE 0.9% FLUSH 5 ML FLUSH IV FLUSH SCH (08:26)
[2016-09-29] MEDS: MULTIVITAMIN TAB PO SCH (08:27)
[2016-09-29] MEDS: AZITHROMYCIN 250 MG TAB PO SCH (08:27)
[2016-09-29] MEDS ORDERED: LISI10TA3 PO (08:57)
[2016-09-29] MEDS ORDERED: LISINOPRIL 10 MG TAB PO ONE (09:00)
[2016-09-29 09:32] VITALS: TEMP 99.7
== END 2016-09-29 11:30 | DRG 195 ==
LOC: PHED 11:18 → PHEDA 13:32 → PH3B 14:48
PROVIDERS: ADMIT Family Medicine; ATTEND Family Medicine
DX: J18.9 Pneumonia, unspecified organism (principal); R09.02 Hypoxemia; I10 Essential (primary) hypertension; Z85.42 Personal history of malignant neoplasm of other parts of uterus; Z85.828 Personal history of other malignant neoplasm of skin; H91.90 Unspecified hearing loss, unspecified ear; Z87.01 Personal history of pneumonia (recurrent); Z87.891 Personal history of nicotine dependence; M53.3 Sacrococcygeal disorders, not elsewhere classified; R35.0 Frequency of micturition; M54.5 Low back pain; Z80.0 Family history of malignant neoplasm of digestive organs; R26.81 Unsteadiness on feet
CPT/HCPCS: 71010; 80048; 80053; 81001; 82550; 83605; 83880; 84484; 85025; 87040; 87086; 87804; 93005; 93971; 94620; 94640; 94664; 94667; 96374; J0456; J0696; J1650; J2920; J7050

== ENCOUNTER 2017-05-08 12:44 | Emergency (ER) | payer MEDICARE, OTHER ==
[~2017-05-08] VITALS: Ht 167.6 cm; Wt 56.5 kg
[~2017-05-08 12:44] MED LIST changes: +CEFT250T8 PO; +LATA0.002 EACH EYE; +LISI10TA3 PO; +MULT-135 PO; +ROBIDM5S PO; -TAB-TAB PO; +ZITH250T PO
[2017-05-08 12:51] VITALS: BP 159/70; PULSE 83; RESP 20; TEMP 99.3; O2SAT 98
[2017-05-08] MEDS ORDERED: DEXAMETHASONE SOD PHOS 4 MG/ML VIAL IV PUSH ONE (14:00)
[2017-05-08] MEDS ORDERED: SODIUM CHLORID 0.9% 500 ML INJ 500 ML IV ONE (14:00)
[2017-05-08] MEDS ORDERED: ONDANSETRON HCL 4 MG/2 ML VIAL IVP ONE (14:00)
[2017-05-08] MEDS ORDERED: DIAZEPAM 2 MG TAB PO ONE (14:00)
[2017-05-08] MEDS ORDERED: SODIUM CHLORIDE 0.9% FLUSH 10 ML FLUSH IV FLUSH PRN (14:00)
[2017-05-08] MEDS ORDERED: MORPHINE SULFATE 4 MG/ML INJ IV PUSH ONE (14:00)
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
[2017-05-08 14:10] VITALS: BP 158/72; PULSE 72; RESP 18; O2SAT 98
[2017-05-08 14:19] LABS: AUTOMATED NEUTROPHIL # 6.1 TH/MM3 (1.8-7.7); BASOPHIL # 0.1 TH/MM3 (0-0.2); BASOPHIL % 1.4 % (0.0-2.0); EOSINOPHIL # 0.1 TH/MM3 (0-0.4); EOSINOPHIL % 0.7 % (0.0-4.0); HEMATOCRIT 34.1 % (35.0-46.0); HEMO FLAGS DIFF FINAL; LYMPH % 9.8 % (9.0-44.0); LYMPHOCYTE # 0.9 TH/MM3 (1.0-4.8); MEAN CELL VOLUME 91.6 FL (80.0-100.0); MEAN CORPUSCULAR HEMOGLOBIN 30.4 PG (27.0-34.0); MEAN CORPUSCULAR HGB CONC 33.2 % (32.0-36.0); MONO % 17.2 % (0.0-8.0); NEUT % 70.9 % (16.0-70.0); PLATELET COUNT 271 TH/MM3 (150-450); RED BLOOD COUNT 3.73 MIL/MM3 (4.00-5.30); RED CELL DISTRIBUTION WIDTH 13.3 % (11.6-17.2); WHITE BLOOD COUNT 8.7 TH/MM3 (4.0-11.0)
[2017-05-08 14:26] LABS: POTASSIUM 4.1 MEQ/L (3.5-5.1)
[2017-05-08 14:29] LABS: BICARBONATE 29.6 MEQ/L (21.0-32.0)
[2017-05-08 14:31] VITALS: BP 161/71; PULSE 71; RESP 18; O2SAT 96
--- NOTE | 2017-05-08 15:11 | RADRPT ---
EXAM DATE/TIME: 05/08/2017 14:38 [facility] COMPARISON: CHEST SINGLE AP, September 25, 2016, 11:54. INDICATIONS : Cough, mid upper back area pain MEDICAL HISTORY : None. SURGICAL HISTORY : None. ENCOUNTER: Initial ACUITY: 1 week PAIN SCORE: 8/10 LOCATION: Bilateral chest upper posterior FINDINGS: A single AP portable view of the chest was obtained. This demonstrates hyperinflation of both lungs w ith no confluent infiltrates or effusions. Calcified right hilar lymph nodes are again noted. The hea rt size is within normal limits with no perihilar edema. Atherosclerotic changes are present in the a feliciano. There is a mild to moderate scoliosis with degenerative change in the thoracic and upper lumbar spine. CONCLUSION: 1. Hyperinflated lungs with no acute cardiopulmonary disease. 2. There is no evidence of pneumonia. 3. Calcified right hilar lymph nodes. Ghassan Phipps MD on May 08, 2017 at 15:09 Board Certified Radiologist. This report was verified electronically.
--- NOTE | 2017-05-08 15:13 | RADRPT ---
EXAM DATE/TIME: 05/08/2017 14:44 [facility] COMPARISON: No previous studies available for comparison. INDICATIONS : Neck pain for 1 week, no known injury, pain increasing in severity MEDICAL HISTORY : None. SURGICAL HISTORY : None. ENCOUNTER: Initial ACUITY: 1 week PAIN SCORE: 8/10 LOCATION: Bilateral neck FINDINGS: Limited AP and lateral views of the cervical spine were obtained as well as odontoid views. This demo nstrates a mild grade 1 anterospondylolisthesis of C4 on C5 of approximately 2 mm. Moderate to severe degenerative disc changes are present at the C5-6 level with disc space narrowing and hypertrophic c hange. Milder degenerative disc changes are present at the C6-7 level. There is diffuse osteopenia wi th no acute fracture. The dens is intact in appearance. There are degenerative changes in the atlanto axial joint. CONCLUSION: 1. Mild grade 1 anterospondylolisthesis of C4 on C5. 2. Jewell disc change at C5-6 and C6-7. 3. Osteopenia with no acute fracture. Ghassan Phpips MD on May 08, 2017 at 15:10 Board Certified Radiologist. This report was verified electronically.
[2017-05-08] MEDS ORDERED: DIAZ2 PO (15:35)
[2017-05-08] MEDS ORDERED: IBUP400T20 PO (15:35)
[2017-05-08 15:50] VITALS: BP 145/88; PULSE 77; RESP 18; O2SAT 98
[2017-05-08 15:52] LABS: BLOOD, URINE NEG (NEG); GLUCOSE,URINE NEG (NEG); KETONE, URINE 15 mg/dL (NEG); NITRITE,URINE NEG (NEG); PH, URINE 6.5 (5.0-8.5)
[2017-05-08 16:08] LABS: METHOD OF COLLECTION CLEAN CATCH; URINE COLOR YELLOW (YELLW/STRAW)
[2017-05-08 16:09] LABS: BACTERIA, URINE FEW /hpf; CULTURE IF INDICATED CULTURE INDICATED; RBC, URINE 0-3 /hpf (0-3); WBC, URINE 15-19 /hpf (0-5)
[2017-05-08 16:10] LABS: COMMENT (UR) CULTURE INDICATED; COMMENT2 (UR) MUCOUS PRESENT; TRANSITIONAL EPI CELLS, URINE 0-5 /hpf
[2017-05-08] MEDS ORDERED: MACR100C2 PO (16:27)
[2017-05-08] MEDS ORDERED: cefTRIAXone INJ 1,000 MG in SODIUM CHLORIDE 0.9% INJ 100 ML IV ONE (16:30)
[2017-05-08 17:37] VITALS: BP 148/68; PULSE 72; RESP 18; O2SAT 98
--- NOTE | 2017-05-09 14:01 | EKG ---
Date Performed: 05/08/2017 Time Performed: 14:15:50 PTAGE: 82 years EKG: Sinus rhythm POSSIBLE LEFT ATRIAL ENLARGEMENT ANTEROSEPTAL MYOCARDIAL INFARCTION ABNORMAL ECG Compared to prior t racing no significant change PREVIOUS TRACING : 09/25/2016 12.21 DOCTOR: Hernesto Richardson Interpretating Date/Time 05/09/2017 13:59:23
== END 2017-05-08 18:03 | disposition home or self-care (01) ==
LOC: PHED 12:44
DX: R53.1 Weakness (principal); M79.1 Myalgia; R94.31 Abnormal electrocardiogram [ECG] [EKG]; T14.8 Other injury of unspecified body region; X50.3XXA Overexertion from repetitive movements, initial encounter; Y93.H9 Activity, other involving exterior property and land maintenance, building and construction; Y92.007 Garden or yard of unspecified non-institutional (private) residence as the place of occurrence of the external cause; X37.0XXA Hurricane, initial encounter
CPT/HCPCS: 71010; 72040; 80048; 81001; 85025; 87086; 93005; 96361; 96365; 96375; 99285; J0696; J1100; J2270; J2405; J7040

== ENCOUNTER 2017-05-14 09:18 | Emergency (ER) | payer OTHER ==
[~2017-05-14] VITALS: Ht 167.6 cm; Wt 55.0 kg
[~2017-05-14 09:18] MED LIST changes: -CEFT250T8 PO; +DIAZ2 PO; +IBUP400T20 PO; -LISI10TA3 PO; +MACR100C2 PO; -MULT-135 PO; -ROBIDM5S PO; -ZITH250T PO
[2017-05-14 09:31] VITALS: BP 133/61; PULSE 85; RESP 16; TEMP 99.1; O2SAT 99
[2017-05-14 11:00] LABS: AUTOMATED NEUTROPHIL # 7.7 TH/MM3 (1.8-7.7); BASOPHIL # 0.1 TH/MM3 (0-0.2); BASOPHIL % 0.9 % (0.0-2.0); EOSINOPHIL # 0.1 TH/MM3 (0-0.4); EOSINOPHIL % 0.8 % (0.0-4.0); HEMATOCRIT 33.7 % (35.0-46.0); LYMPH % 7.5 % (9.0-44.0); LYMPHOCYTE # 0.8 TH/MM3 (1.0-4.8); MEAN CELL VOLUME 93.3 FL (80.0-100.0); MEAN CORPUSCULAR HEMOGLOBIN 30.4 PG (27.0-34.0); MEAN CORPUSCULAR HGB CONC 32.6 % (32.0-36.0); MONO % 15.6 % (0.0-8.0); NEUT % 75.2 % (16.0-70.0); PLATELET COUNT 310 TH/MM3 (150-450); RED BLOOD COUNT 3.62 MIL/MM3 (4.00-5.30); RED CELL DISTRIBUTION WIDTH 12.9 % (11.6-17.2); WHITE BLOOD COUNT 10.3 TH/MM3 (4.0-11.0)
[2017-05-14 11:02] LABS: HEMO FLAGS DIFF FINAL
[2017-05-14 11:11] LABS: POTASSIUM 3.7 MEQ/L (3.5-5.1)
[2017-05-14 11:13] LABS: BICARBONATE 31.5 MEQ/L (21.0-32.0)
[2017-05-14 11:27] LABS: APTT (PATIENT) 26.4 SEC (24.3-30.1); INTERNATIONAL NORMALIZED RATIO 0.9 RATIO; PROTHROMBIN TIME - PATIENT 10.4 SEC (9.8-11.6)
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
[2017-05-14 11:54] LABS: BLOOD, URINE NEG (NEG); GLUCOSE,URINE NEG (NEG); KETONE, URINE NEG (NEG); NITRITE,URINE NEG (NEG); PH, URINE 6.5 (5.0-8.5)
[2017-05-14 12:00] LABS: COMMENT (UR) CULT NOT INDICATED; CULTURE IF INDICATED CULT NOT INDICATED; METHOD OF COLLECTION CLEAN CATCH; RBC, URINE 0-3 /hpf (0-3); SQUAMOUS EPITHELIAL CELL URINE 0-5 /hpf (0-5); URINE COLOR YELLOW (YELLW/STRAW); WBC, URINE 0-2 /hpf (0-5)
[2017-05-14 12:15] VITALS: BP 155/61; PULSE 82; RESP 15; O2SAT 98
--- NOTE | 2017-05-14 13:14 | RADRPT ---
EXAM DATE/TIME: 05/14/2017 12:09 [facility] COMPARISON: CHEST SINGLE AP, May 08, 2017, 14:38. INDICATIONS : Chest pain this morning. MEDICAL HISTORY : None. SURGICAL HISTORY : None. ENCOUNTER: Initial ACUITY: 1 day PAIN SCORE: 5/10 LOCATION: Bilateral chest FINDINGS: Lungs are hyperexpanded with diffuse interstitial prominence similar to prior exam. Redemonstration o f calcified right hilar nodes. No significant new focal pleural or parenchymal opacities. Cardiomedia stinal contours are within normal limits. Remainder of the exam is unchanged. CONCLUSION: 1. No acute abnormality or significant interval change. Leonid Valdes MD on May 14, 2017 at 13:11 Board Certified Radiologist. This report was verified electronically.
[2017-05-14 13:15] VITALS: BP 169/79; PULSE 82; RESP 16; O2SAT 99
[2017-05-14 14:55] VITALS: BP 156/68; PULSE 83; RESP 16; O2SAT 98
== END 2017-05-14 14:54 | disposition home or self-care (01) ==
LOC: PHED 09:18
DX: I10 Essential (primary) hypertension (principal); N89.8 Other specified noninflammatory disorders of vagina; I89.0 Lymphedema, not elsewhere classified; H91.90 Unspecified hearing loss, unspecified ear; Z87.440 Personal history of urinary (tract) infections; Z87.39 Personal history of other diseases of the musculoskeletal system and connective tissue; Z87.09 Personal history of other diseases of the respiratory system; Z85.42 Personal history of malignant neoplasm of other parts of uterus; Z85.828 Personal history of other malignant neoplasm of skin; Z87.19 Personal history of other diseases of the digestive system
CPT/HCPCS: 71010; 80048; 81001; 85025; 85610; 85730; 99284